=== PATIENT | female | born 1980 | race Caucasian/White ===

== ENCOUNTER 2017-10-20 22:03 | Emergency (ER) | payer SELFPAY ==
[~2017-10-20] VITALS: Ht 165.1 cm; Wt 80.0 kg
[2017-10-20 22:25] VITALS: BP 102/79
== END 2017-10-21 00:04 | disposition left against medical advice (07) ==
LOC: EMS 22:04
DX: R22.0 Localized swelling, mass and lump, head (principal); Y04.0XXA Assault by unarmed brawl or fight, initial encounter; Y93.89 Activity, other specified; Y92.89 Other specified places as the place of occurrence of the external cause; Y99.8 Other external cause status; Z53.21 Procedure and treatment not carried out due to patient leaving prior to being seen by health care provider